=== PATIENT | female | born 1960 | race Caucasian/White ===

== ENCOUNTER 2019-09-10 11:30 | Emergency (ER) | payer BC, SELFPAY ==
--- NOTE | 2019-09-10 11:35 | ED.URI ---
HPI - URI/Sore Throat General Chief Complaint: Upper Respiratory Infection Stated Complaint: cough/goodman Time Seen by Provider: 09/10/19 11:45 Source: patient and RN notes reviewed Mode of arrival: ambulatory Limitations: no limitations History of Present Illness HPI Narrative: 59-year-old female presents with concern for cough, nasal congestion, body aches, headaches that started Monday afternoon. Reports low-grade fever. Reports she got a flu shot this year. MD elicited complaint: cough Related Data Home Medications Medication Instructions Recorded Confirmed atorvastatin 20 mg DAILY 09/10/19 09/10/19 bupropion HCl 300 mg PO DAILY 09/10/19 09/10/19 levothyroxine [Synthroid] 75 mcg DAILY 09/10/19 09/10/19 Allergies Allergy/AdvReac Type Severity Reaction Status Date / Time No Known Allergies Allergy Unknown Verified 09/10/19 11:33 Review of Systems Review of Systems: Narrative: CONSTITUTIONAL: Reports malaise, chills, sweats, or fever. EYES: Denies visual changes, redness, or discharge. ENT: Reports rhinorrhea, congestion. Denies sinus pain, otalgia and sore throat. CARDIOVASCULAR: Denies chest pain, palpitations, or edema. RESPIRATORY: Reports cough. Denies dyspnea. GASTROINTESTINAL: Denies abdominal pain, nausea, vomiting, diarrhea SKIN: Denies rash or itching. MUSCULOSKELETAL: Denies myalgia. NEUROLOGIC: Reports headache. All systems reviewed & are unremarkable except as noted in HPI and below PMFSH Social History Social History Gender identity (if verbalized by the patient): Female Comments At time of signature, agree with nursing past medical, surgical, social and family history. There is no relevant family history pertinent to the presenting complaint Exam Narrative: Exam Narrative: GENERAL: Well-appearing, well-nourished, and in no acute distress. HEAD: Normocephalic EYES: PERRLA, conjunctivae clear ENT: Nares clear, turbinates edematous and erythematous, clear discharge. Mucous membranes moist. TM pearly frost with dull light reflex bilaterally; no tragal tenderness. Oropharynx not erythematous without lesions. Tonsils not enlarged and without exudate, no drooling, no hoarseness, no trismus. NECK: Supple. No lymphadenopathy CHEST: Clear to auscultation, breath sounds equal. No wheezing, rhonchi, rales, or stridor. No respiratory distress, speaks in full sentences. HEART: Regular rate and rhythm. No murmur heard. Normal peripheral pulses. SKIN: Warm, dry, no rash. NEURO: Alert and oriented x3. PSYCH: Normal mood and affect Course Course Emergency Course: Patient is aware of diagnosis, understands and agrees to treatment plan. Anticipatory guidance given. Patient agrees to follow-up as directed and is aware of reasons to seek care at the emergency department. Portions of this record may have been created with voice recognition software Vital Signs Vital signs: Vital Signs Temperature 100.9 F H 09/10/19 11:45 Pulse Rate 105 H 09/10/19 11:45 Respiratory Rate 22 H 09/10/19 11:45 Blood Pressure 151/97 H 09/10/19 11:45 Pulse Oximetry 99 09/10/19 11:45 Temperature 100.9 F H 09/10/19 11:45 Pulse Rate 105 H 09/10/19 11:45 Respiratory Rate 22 H 09/10/19 11:45 Blood Pressure 151/97 H 09/10/19 11:45 Pulse Oximetry 99 09/10/19 11:45 Reviewed. Patient has current diagnosis of hypertension MDM - URI/Sore Throat MDM Narrative Medical decision making narrative: Differential diagnosis considered: Strep pharyngitis, allergic rhinitis, upper respiratory tract infection, sinusitis, rhinosinusitis, nasopharyngitis. viral pharyngitis, otitis media, otitis externa, pneumonia, bronchitis, viral cough syndrome, viral syndrome, and influenza. Exam findings show no acute concerns or changes; patient is non-toxic appearing and is in no distress. Patient is appropriate for outpatient treatment and follow-up. Lab Data Attestation: I reviewed the patient's lab results. Labs: Influenza A Screen
[2019-09-10 11:45] VITALS: BP 151/97; PULSE 105; RESP 22; TEMP 38.3; O2SAT 99
== END 2019-09-10 12:03 | disposition home or self-care (01) ==
PROVIDERS: Emergency Provider Nurse Practitioner
DX: J10.1 Influenza due to other identified influenza virus with other respiratory manifestations (principal); I25.10 Atherosclerotic heart disease of native coronary artery without angina pectoris; E78.00 Pure hypercholesterolemia, unspecified; M19.90 Unspecified osteoarthritis, unspecified site; E03.9 Hypothyroidism, unspecified; F41.9 Anxiety disorder, unspecified; F32.9 Major depressive disorder, single episode, unspecified
CPT/HCPCS: 87804; 99213; G0463

== ENCOUNTER 2020-05-11 15:27 | Emergency (ER) | payer BC, SELFPAY ==
[2020-05-11 15:44] VITALS: BP 121/72; PULSE 90; RESP 20; TEMP 36.3; O2SAT 98
--- NOTE | 2020-05-11 15:55 | ED.EAR ---
HPI - Ear Problem General Chief complaint: Ear Stated complaint: R/ear pain Time Seen by Provider: 05/11/20 15:44 Source: patient and RN notes reviewed Mode of arrival: ambulatory Limitations: no limitations History of Present Illness HPI Narrative: Patient presents today complaining of right ear clogged sensation with sporadic sharp pains. Symptoms have been worsening over the past week. Denies decreased hearing or drainage. Denies congestion, rhinorrhea, sore throat. States she does have allergies to cats and dogs, of which she has both. She has not been taking her Zyrtec or using her Flonase recently. She has been using Debrox and using Q-tips without relief. She is currently pain-free. MD Complaint: other (Clogged sensation in the right ear) Related Data Home Medications Medication Instructions Recorded Confirmed atorvastatin 20 mg DAILY 09/10/19 09/10/19 bupropion HCl 300 mg PO DAILY 09/10/19 09/10/19 levothyroxine [Synthroid] 75 mcg DAILY 09/10/19 09/10/19 Allergies Allergy/AdvReac Type Severity Reaction Status Date / Time No Known Allergies Allergy Unknown Verified 09/10/19 11:33 Review of Systems Review of Systems: Narrative: CONSTITUTIONAL: Denies body aches, fever, chills, or sweats. EYES: Denies visual changes, redness, or discharge. ENT: Denies rhinorrhea, congestion, sore throat, or otalgia. Right ear clogged sensation CARDIOVASCULAR: Denies chest pain, palpitations, or edema. RESPIRATORY: Denies cough or dyspnea. GASTROINTESTINAL: Denies abdominal pain, nausea, vomiting, or diarrhea. GENITOURINARY: Denies dysuria or hematuria. SKIN: Denies rash, itching, or wounds. MUSCULOSKELETAL: Denies back pain, joint pain, or myalgia. NEUROLOGIC: Denies headache, numbness, tingling, or weakness. PSYCH: Denies depression or anxiety. [facility] Past Medical History Medical History (Updated 05/11/20 @ 16:01 by Taty Morel, COMMERCIAL CREDIT SPECIALIST, ) Allergic to dogs Cat allergies Hyperlipidemia Hypertension Hypothyroidism Social History Social History Gender identity (if verbalized by the patient): Female Comments At time of signature, I have reviewed and agree with nursing past medical, surgical, social and family history unless otherwise noted. Please see nursing chart for further information. There is no relevant family history pertinent to the presenting complaint Exam Narrative: Exam Narrative: GENERAL: Well-appearing, well-nourished, and in no acute distress. HEAD: Normocephalic, atraumatic. EYES: EOMI. No redness or drainage. Conjunctivae normal. ENT: Mucous membranes pink and moist. Nares clear. No rhinorrhea. Right ear with mild middle ear effusion without evidence of infection. Left ear normal. Throat normal. Uvula midline. NECK: Normal AROM. Supple. No lymphadenopathy. CHEST: No respiratory distress. Clear to auscultation. HEART: Regular rate and rhythm. No murmur appreciated. Normal peripheral pulses. EXTREMITIES: Normal range of motion. No edema. SKIN: Warm, dry, no rash. Capillary refill normal. Normal skin turgor. NEURO: No focal deficits. Alert and oriented x3. Gait steady. PSYCH: Normal affect. No signs of depression or anxiety. Course Vital Signs Vital signs: Vital Signs Temperature 97.4 F L 05/11/20 15:44 Pulse Rate 90 05/11/20 15:44 Respiratory Rate 20 05/11/20 15:44 Blood Pressure 121/72 05/11/20 15:44 Pulse Oximetry 98 05/11/20 15:44 Temperature 97.4 F L 05/11/20 15:44 Pulse Rate 90 05/11/20 15:44 Respiratory Rate 20 05/11/20 15:44 Blood Pressure 121/72 05/11/20 15:44 Pulse Oximetry 98 05/11/20 15:44 Reviewed. Pt has been instructed to follow up with her PCP regarding her elevated blood pressure today. Medical Decision Making Differential Diagnosis Differential Diagnosis: Otitis media, otitis externa, ruptured TM, serous otitis, eustachian tube dysfunction, cerumen impaction Vital Signs Vital Signs: Vital Signs Temperature 97.4
== END 2020-05-11 16:16 | disposition home or self-care (01) ==
PROVIDERS: Emergency Provider Nurse Practitioner
DX: H65.91 Unspecified nonsuppurative otitis media, right ear (principal); E78.5 Hyperlipidemia, unspecified; I10 Essential (primary) hypertension; E03.9 Hypothyroidism, unspecified
CPT/HCPCS: 99211; G0463

== ENCOUNTER 2023-08-09 18:21 | Emergency (ER) | payer OTHER, SELFPAY ==
[2023-08-09 18:46] VITALS: BP 157/73; PULSE 63; RESP 18; TEMP 36.4; O2SAT 99
--- NOTE | 2023-08-09 19:06 | ED.SKABFB ---
HPI - Skin/Abscess/Foreign Bdy General Chief complaint: Skin/Abscess/Foreign Body Stated complaint: Splinter in Toe Time Seen by Provider: 08/09/23 18:54 Source: patient and RN notes reviewed Mode of arrival: ambulatory Limitations: no limitations History of Present Illness HPI narrative: Patient presents today with wooden splinters to her left 3rd and 4th toes that were sustained at home on an unfinished wooden floor 2 days ago. She is up-to-date on her tetanus vaccine. She has not attempted removal at home. Related Data Home Medications Medication Instructions Recorded Confirmed carvedilol 3.125 mg tablet 3.125 mg PO DAILY 08/09/23 08/09/23 escitalopram oxalate 20 mg tablet 20 mg PO DAILY 08/09/23 08/09/23 levothyroxine 100 mcg tablet 100 mcg PO DAILY 08/09/23 08/09/23 (Synthroid) telmisartan 40 mg tablet 40 mg PO DAILY 08/09/23 08/09/23 Allergies Allergy/AdvReac Type Severity Reaction Status Date / Time No Known Allergies Allergy Unknown Verified 08/09/23 18:48 Review of Systems Review of Systems: CONSTITUTIONAL: Denies body aches, fever, chills, or sweats. EYES: Denies visual changes, redness, or discharge. ENT: Denies rhinorrhea, congestion, sore throat, or otalgia. CARDIOVASCULAR: Denies chest pain, palpitations, or edema. RESPIRATORY: Denies cough or dyspnea. GASTROINTESTINAL: Denies abdominal pain, nausea, vomiting, or diarrhea. GENITOURINARY: Denies dysuria or hematuria. SKIN: Splinters to toes MUSCULOSKELETAL: Denies back pain, joint pain, or myalgia. NEUROLOGIC: Denies headache, numbness, tingling, or weakness. PSYCH: Denies depression or anxiety. [facility] Past Medical History Medical History Allergic to dogs Cat allergies Hyperlipidemia Hypertension Hypothyroidism Social History Social History Gender identity (if verbalized by the patient): Female Comments At time of signature, I have reviewed and agree with nursing past medical, surgical, social and family history unless otherwise noted. Please see nursing chart for further information. There is no relevant family history pertinent to the presenting complaint Exam Narrative: GENERAL: Well-appearing, well-nourished, and in no acute distress. HEAD: Normocephalic, atraumatic. EYES: EOMI. No redness or drainage. Conjunctivae normal. ENT: Mucous membranes pink and moist. NECK: Normal AROM. CHEST: No respiratory distress. EXTREMITIES: Normal range of motion. No edema. SKIN: Warm, dry, no rash. One small wooden splinter to the tip of the left 3rd toe, similar to the left 4th toe. No surrounding erythema or edema to suggest infection. NEURO: No focal deficits. Alert and oriented x3. Gait steady. PSYCH: Normal affect. No signs of depression or anxiety. Course Course Level of Care: Express Care Visit Vital Signs Vital signs: Vital Signs Temperature 97.5 F L 08/09/23 18:46 Pulse Rate 63 08/09/23 18:46 Respiratory Rate 18 08/09/23 18:46 Blood Pressure 157/73 H 08/09/23 18:46 Pulse Oximetry 99 08/09/23 18:46 Oxygen Delivery Room Air 08/09/23 18:46 Temperature 97.5 F L 08/09/23 18:46 Pulse Rate 63 08/09/23 18:46 Respiratory Rate 18 08/09/23 18:46 Blood Pressure 157/73 H 08/09/23 18:46 Pulse Oximetry 99 08/09/23 18:46 Oxygen Delivery Room Air 08/09/23 18:46 Reviewed Procedures Foreign Body Removal Foreign Body #1: Foreign Body Removal Date: 08/09/23 Foreign Body Removal Time: 19:09 Site: left and other (3rd and 4th toes) Description of foreign body: other (Wooden splinter) Sedation/Analgesia: none Technique: removal with forceps and other (Tip of 18 gauge needle) Confirmed by:: direct visualization Complications: none Post-procedure exam: awake, alert Neurovascular: no change from pre-procedu
== END 2023-08-09 19:12 | disposition home or self-care (01) ==
PROVIDERS: Emergency Provider Nurse Practitioner
DX: S90.455A Superficial foreign body, left lesser toe(s), initial encounter (principal); W45.8XXA Other foreign body or object entering through skin, initial encounter; E78.5 Hyperlipidemia, unspecified; I10 Essential (primary) hypertension; E03.9 Hypothyroidism, unspecified
CPT/HCPCS: 99212; G0463

== ENCOUNTER 2024-02-09 14:38 | Emergency (ER) | payer OTHER, SELFPAY ==
[2024-02-09] VITALS (7 sets, daily range): BP systolic 112–132; BP diastolic 56–82; PULSE 60–98; RESP 12; TEMP 36.7; O2SAT 97–100
--- NOTE | ~2024-02-09 | CT_ITS ---
EXAMINATION: CT brain wo con DATE: 02/09/2024 15:38 INDICATION: Transient lip and tongue numbness TECHNIQUE: Computed tomography (CT) of the head was performed without intravenous contrast. Sagittal and coronal reconstructions were performed. The mA was adjusted according to patient size. Iterative reconstruction technique was employed. The dose-length product was 605.33 mGy-cm. COMPARISON: Brain MR dated 10/14/2013 FINDINGS: Small old lacunar infarcts at the head of the left caudate nucleus, in the anterior right thalamus an d at the posterior limb of the left internal capsule. No acute intracranial hemorrhage, acute infarct ion or abnormal extra axial fluid collection. There is mild scattered white matter hypoattenuation co nsistent with chronic small vessel ischemic disease. Ventricles are normal and symmetric. No mass/ma ss effect. The orbits, paranasal sinuses and mastoid air cells are normal. IMPRESSION: 1. Small old lacunar infarcts at the left caudate nucleus, right thalamus and posterior limb of the l eft internal capsule. No acute intracranial process. Reviewed, dictated and finalized at location A. IMPRESSION: 1. Small old lacunar infarcts at the left caudate nucleus, right thalamus and p osterior limb of the left internal capsule. No acute intracranial process.
--- NOTE | 2024-02-09 14:50 | ECG_ITS ---
Test Date: 2024-02-09 14:56:19 Measurements Intervals Gillespie Rate: 63 P: 16 MA: 144 QRS: 28 QRSD: 98 T: 63 QT: 416 QTc: 428 Interpretive Statements SINUS RHYTHM NONSPECIFIC T-WAVE ABNORMALITY- ANTEROLATERAL LEADS BASELINE ARTIFACT- II, III, AVF BORDERLINE ECG No previous ECG available for comparison Electronically Signed On 02-09-2024 15:02:06 CDT by Juancho Neville D.O.
--- NOTE | 2024-02-09 14:51 | ED.NAVMDI ---
HPI - Nausea/Vomiting/Diarrhea General Chief complaint: Nausea/Vomiting/Diarrhea Stated complaint: nausea/vomiting/headache/dizzy Source: patient and EMS Mode of arrival: EMS Limitations: no limitations History of Present Illness HPI Narrative: 63-year-old female presents with several complaints. Patient donated blood this morning around 11am and was feeling fine at that time. Shortly after donating she did start to feel of dizzy and they elevated her legs. She also noted that her tongue and lips were numb. She [facility] and [facility] who recommended she call 911. She deferred and started to go home. While driving, she felt nauseated and had double vision so she pulled over started vomiting. She was had a headache. She states her symptoms, in particular nausea is worse with movement. She denies any abdominal pain or diaphoresis. Her last bowel movement was shortly after donating blood and was loose. She states she had at baseline she has a frequent history of diarrhea. No abdominal pain associated. History of a CVA in 2019 which left her with some reported right hand weakness. She states her pre-donation Hgb was 14.0. Related Data Home Medications Medication Instructions Recorded Confirmed carvedilol 3.125 mg tablet 3.125 mg PO DAILY 08/09/23 08/09/23 escitalopram oxalate 20 mg tablet 20 mg PO DAILY 08/09/23 08/09/23 levothyroxine 100 mcg tablet 100 mcg PO DAILY 08/09/23 08/09/23 (Synthroid) telmisartan 40 mg tablet 40 mg PO DAILY 08/09/23 08/09/23 Allergies Allergy/AdvReac Type Severity Reaction Status Date / Time codeine AdvReac Mild Hives Verified 08/09/23 19:34 [facility] Past Medical History Medical History (Updated 02/09/24 @ 17:32 by Tanesha Ventura MD) Allergic to dogs Cat allergies CKD (chronic kidney disease) CVA (cerebral vascular accident) 2019; residual R hand weakness Hyperlipidemia Hypertension Hypothyroidism Social History Social History Gender identity (if verbalized by the patient): Female Exam Narrative: GENERAL: well-nourished, and in no acute distress. Pale HEAD: Normocephalic, atraumatic. EYES: Non injected, non icteric ENT: Nares clear, no rhinorrhea or epistaxis. NECK: Supple. CHEST: Speaking in full sentences. No respiratory distress. HEART: Regular rate and rhythm. . ABDOMEN: Soft, nondistended. EXTREMITIES: Normal range of motion. No edema. SKIN: Warm, dry, no rash. NEURO: No focal deficits. Alert and oriented x3. Speaks clearly without aphasia or dysarthria. No abnormal movements appreciated. PSYCH: Normal mood and affect. Course Vital Signs Vital signs: Vital Signs Temperature 98.1 F 02/09/24 14:44 Pulse Rate 69 02/09/24 14:44 Respiratory Rate 12 02/09/24 14:44 Blood Pressure 132/75 02/09/24 14:44 Pulse Oximetry 97 02/09/24 14:44 Oxygen Delivery Room Air 02/09/24 14:44 Temperature 98.1 F 02/09/24 14:44 Pulse Rate 74 02/09/24 17:03 Respiratory Rate 12 02/09/24 16:11 Blood Pressure 115/82 02/09/24 17:03 Pulse Oximetry 100 02/09/24 16:11 Oxygen Delivery Room Air 02/09/24 14:44 MDM - Nausea/Vomiting/Diarrhea MDM Narrative Medical decision making narrative: Patient reports feeling nauseated and having double vision and vomiting as well as a headache shortly after donating blood this morning. She also transiently had tongue and lip numbness though the symptoms have improved. Her pre donation hemoglobin was reported to be 14.0. EMS report normal vital signs as well as a normal blood glucose. In the emergency department they are afebrile with vital signs within normal limits. This appears to be near syncope, I suspect as a response to blood donation. Hgb 12.5 , not anemic. Cr 1.6 without prior for comparison. 2nd bolus fluids ordered. Repeat creatinine 1.4. Patient does state she has baseline kidney
[2024-02-09] MEDS: SODIUM CHLORIDE 0.9% IV 1,000 ML 999 ML IV CONT ×2 (15:08→16:11)
[2024-02-09] MEDS: ONDANSETRON INJ 4 MG/2 ML VIAL IV PUSH (15:08)
[2024-02-09 15:15] LABS: Basophils Absolute Auto 0.1 K/mm3 (0.0-0.1); Basophils Percent Auto 0.7 % (0.2-1.2); Eosinophils Absolute Auto 0.1 K/mm3 (0-0.3); Eosinophils Percent Auto 0.6 % (0-4.4); Hematocrit 36.5 % (37.0-47.0); Hemoglobin 12.5 g/dL (12.0-15.0); Immature Granulocyte Absolute 0.05 K/mm3 (0.00-0.031); Immature Granulocyte Percent A 0.5 % (0-0.5); Lymphocytes Absolute Auto 0.86 K/mm3 (0.9-3.2); Mean Corpuscular HGB Conc 34.2 g/dl (32-36); Mean Corpuscular Hemoglobin 30.5 pg (26-34); Mean Platelet Volume 10.3 fl (7.4-10.4); Monocytes Absolute Auto 0.5 K/mm3 (0.1-0.6); Monocytes Percent Auto 5.5 % (2.6-8.5); Neutrophils Percent Auto 83.7 % (45.5-73.1); Platelet Count Result 156 k/mm3 (150-375); White Blood Count 9.5 K/mm3 (4.5-10.0)
[2024-02-09 15:35] LABS: Troponin I < 0.012 ng/mL (0.000-0.034)
[2024-02-09 15:43] LABS: Alanine Aminotransferase 17 U/L (6-35); Albumin Level 4.1 g/dL (3.5-5.1); Alkaline Phosphatase 37 U/L (38-126); Anion Gap 13 mmol/L (4-12); Aspartate Amino Transferase 23 U/L (14-36); Bilirubin,Total 0.6 mg/dL (0.2-1.3); Blood Urea Nitrogen 19 mg/dL (7-17); Calcium 9.2 mg/dL (8.4-10.2); Carbon Dioxide 22 mmol/L (22-30); Chloride 101 mmol/L (98-107); Estimated CRCL calculation 31 ml/min; Estimated Glomerular Filt Rate 33; Glucose 120 mg/dL (65-110); Magnesium 1.7 mg/dL (1.6-2.3); Potassium 4.4 mmol/L (3.4-5.0); Sodium 136 mmol/L (137-145)
[2024-02-09 15:50] LABS: Influenza A QL RT-PCR Negative (Negative); Influenza B QL RT-PCR Negative (Negative); RSV RNA, RT-PCR Negative (Negative); SARS-CoV-2 RNA PCR Negative (Negative)
[2024-02-09 17:22] LABS: Anion Gap 7 mmol/L (4-12); Blood Urea Nitrogen 17 mg/dL (7-17); Calcium 7.9 mg/dL (8.4-10.2); Carbon Dioxide 25 mmol/L (22-30); Chloride 104 mmol/L (98-107); Estimated CRCL calculation 35 ml/min; Estimated Glomerular Filt Rate 38; Glucose 107 mg/dL (65-110); Potassium 4.3 mmol/L (3.4-5.0); Sodium 136 mmol/L (137-145)
== END 2024-02-09 17:53 | disposition home or self-care (01) ==
PROVIDERS: Emergency Provider Student in an Organized Health Care Education/Training Program
DX: R11.2 Nausea with vomiting, unspecified (principal); I12.9 Hypertensive chronic kidney disease with stage 1 through stage 4 chronic kidney disease, or unspecified chronic kidney disease; N18.9 Chronic kidney disease, unspecified; E03.9 Hypothyroidism, unspecified; E78.5 Hyperlipidemia, unspecified; Z86.73 Personal history of transient ischemic attack (TIA), and cerebral infarction without residual deficits; Z20.822 Contact with and (suspected) exposure to COVID-19
CPT/HCPCS: 36415; 70450; 80048; 80053; 83735; 84484; 85025; 87637; 93005; 96361; 96374; 99284; J2405; J7030

== ENCOUNTER 2024-03-31 17:23 | Emergency (ER) | payer OTHER, SELFPAY ==
--- NOTE | 2024-03-31 17:31 | ED.URI ---
HPI - URI/Sore Throat General Chief Complaint: Upper Respiratory Infection Stated Complaint: strep throat symptoms and coughing Time Seen by Provider: 03/31/24 17:31 Source: patient Mode of arrival: ambulatory Limitations: no limitations History of Present Illness HPI Narrative: Alem is a 63-year-old female patient presenting to the clinic today with complaints of sore throat, nasal congestion, nausea, sneezing, coughing, headache, and chest congestion times 4 days. She reports no known fever, body aches, or chills. 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 MD elicited complaint: cough, sore throat, rhinorrhea and nasal congestion Related Data Home Medications Medication Instructions Recorded Confirmed carvedilol 3.125 mg tablet 3.125 mg PO DAILY 08/09/23 03/31/24 escitalopram oxalate 20 mg tablet 20 mg PO DAILY 08/09/23 03/31/24 levothyroxine 100 mcg tablet 100 mcg PO DAILY 08/09/23 03/31/24 (Synthroid) telmisartan 40 mg tablet 40 mg PO DAILY 08/09/23 03/31/24 Allergies Allergy/AdvReac Type Severity Reaction Status Date / Time codeine AdvReac Mild Hives Verified 03/31/24 17:40 Review of Systems Review of Systems: Pertinent positives per HPI. Patient denies any fever, chills, rash, visual changes, dizziness,shortness of breath, chest pain, palpitations, vomiting, diarrhea, constipation, abdominal pain, or any urinary issues. PMFSH Past Medical History Medical History Allergic to dogs Cat allergies CKD (chronic kidney disease) CVA (cerebral vascular accident) 2019; residual R hand weakness Hyperlipidemia Hypertension Hypothyroidism Social History Social History Gender identity (if verbalized by the patient): Female Comments At the time of my signature, I reviewed and agree with the nursing past medical, surgical, social, and family history. There is no relevant family history pertinent to the patient complaint. Exam Narrative: General: Well-developed, well nourished, in no apparent distress Head: Normocephalic, atraumatic Eyes: Pupils equally round and reactive to light bilaterally, EOM intact, sclera and conjunctive clear, no discharge, lids normal Ears: TMs intact and congested, ear canals clear, no drainage, grossly hearing normal. Nose: Nares patent, clear nasal discharge, no inflammation, no sinus tenderness. Mouth: Oral pharynx without lesions or masses, good dentition, MMM. Neck: Supple, trachea midline, no enlargement of anterior or posterior cervical nodes, no thyroid masses or goiter palpable. Cardio: Regular rate and rhythm, s1 and s2 normal, no murmur appreciated. Resp: Clear to auscultation bilaterally, no rhonchi, rales, wheezing or rubs Course Course Emergency Course: Portions of this record may have been created with voice recognition software. Level of Care: Express Care Visit Vital Signs Vital signs: Vital signs reviewed MDM - URI/Sore Throat MDM Narrative Medical decision making narrative: At the time of visit patient is resting comfortably on the exam table. Patient appears to be nontoxic. Labs: COVID and strep test was performed. COVID testing is positive. Strep test was negative. We will send strep culture pain Plan: I suspect patient has COVID-19. Work note was given. Supportive measures were discussed with the patient and they voiced understanding discharge instructions and agrees to treatment plan. Return precautions reviewed Differential Diagnosis Differential diagnosis: Likely upper respiratory infection, otitis media, sinusitis, viral infection, bronchitis, influenza, pharyngitis and other Discharge Plan Discharge Clinical Impression: COVID-19 Patient Disposition: Home, Self-Care Condition: Stable Instructions: Antibiotic Form, How to Recover from COVID-19 at Home (ED) Additional Instructions: COVID testing was p
[2024-03-31 17:40] VITALS: BP 138/83; PULSE 87; RESP 20; TEMP 36.4; O2SAT 99
[2024-03-31 18:00] LABS: EDSTREPNEGPOS1 Negative (Negative)
== END 2024-03-31 18:03 | disposition home or self-care (01) ==
PROVIDERS: Emergency Provider Nurse Practitioner Family
DX: U07.1 COVID-19 (principal); I12.9 Hypertensive chronic kidney disease with stage 1 through stage 4 chronic kidney disease, or unspecified chronic kidney disease; N18.9 Chronic kidney disease, unspecified; E78.5 Hyperlipidemia, unspecified; E03.9 Hypothyroidism, unspecified; I69.351 Hemiplegia and hemiparesis following cerebral infarction affecting right dominant side
CPT/HCPCS: 87081; 87426; 87880; 99213; G0463

== ENCOUNTER 2024-05-22 17:11 | Emergency (ER) | payer OTHER, SELFPAY ==
[2024-05-22 17:23] VITALS: BP 123/68; PULSE 81; RESP 18; TEMP 36.2; O2SAT 99
--- NOTE | 2024-05-22 17:35 | ED.URI ---
HPI - URI/Sore Throat General Chief Complaint: Upper Respiratory Infection Stated Complaint: cold symptoms Time Seen by Provider: 05/22/24 17:35 History of Present Illness HPI Narrative: 63-year-old female presented for complaint of nasal congestion and drainage, headache, fatigue and cough. Onset 4 days. Denies shortness of breath, wheezing, nausea vomiting, fevers or chills. Taking Sudafed, benadryl and ibuprofen. Related Data Home Medications Medication Instructions Recorded Confirmed carvedilol 3.125 mg tablet 3.125 mg PO DAILY 08/09/23 05/22/24 escitalopram oxalate 20 mg tablet 20 mg PO DAILY 08/09/23 05/22/24 levothyroxine 100 mcg tablet 100 mcg PO DAILY 08/09/23 05/22/24 (Synthroid) telmisartan 40 mg tablet 40 mg PO DAILY 08/09/23 05/22/24 Allergies Allergy/AdvReac Type Severity Reaction Status Date / Time codeine Allergy Mild Hives Verified 05/22/24 17:31 adhesive tape Allergy Rash Verified 05/22/24 17:31 Review of Systems Review of Systems: CONSTITUTIONAL: Denies body aches, fever, chills, or sweats. EYES: Denies visual changes, redness, or discharge. ENT: reports rhinorrhea, congestion, otalgia. CARDIOVASCULAR: Denies chest pain, palpitations, or edema. RESPIRATORY: reports Denies dyspnea. GASTROINTESTINAL: Denies abdominal pain, nausea, vomiting, or diarrhea. SKIN: Denies rash MUSCULOSKELETAL: Denies back pain, joint pain, or myalgia. NEUROLOGIC: Denies headache PMFSH Past Medical History Medical History Allergic to dogs Cat allergies CKD (chronic kidney disease) CVA (cerebral vascular accident) 2019; residual R hand weakness Hyperlipidemia Hypertension Hypothyroidism Social History Social History Gender identity (if verbalized by the patient): Female Exam Narrative: GENERAL: mildly Ill-appearing, no acute distress. EYES: conjunctivae clear ENT: Mucous membranes moist. Nasal congestion noted. TMs pearly frost with normal light reflex bilaterally; no tragal tenderness. Oropharynx not erythematous without lesions. No drooling, no hoarseness, no trismus, uvula midline. No tripod positioning, hot potato voice, or soft palate swelling. NECK: Supple. No lymphadenopathy CHEST: Clear to auscultation, breath sounds equal. No respiratory distress, speaks in full sentences. HEART: Regular rate and rhythm. No murmur heard. SKIN: Warm, dry, no rash. NEURO: Alert and oriented x3. Course Course Emergency Course: Patient is aware of diagnosis, understands and agrees to treatment plan. Anticipatory guidance given. Patient agrees to follow-up as directed and is aware of reasons to seek care at the emergency department. Portions of this record may have been created with voice recognition software Level of Care: Express Care Visit Vital Signs Vital signs: Vital Signs Temperature 97.2 F L 05/22/24 17:23 Pulse Rate 81 05/22/24 17:23 Respiratory Rate 18 05/22/24 17:23 Blood Pressure 123/68 05/22/24 17:23 Pulse Oximetry 99 05/22/24 17:23 Oxygen Delivery Room Air 05/22/24 17:23 Temperature 97.2 F L 05/22/24 17:23 Pulse Rate 81 05/22/24 17:23 Respiratory Rate 18 05/22/24 17:23 Blood Pressure 123/68 05/22/24 17:23 Pulse Oximetry 99 05/22/24 17:23 Oxygen Delivery Room Air 05/22/24 17:23 MDM - URI/Sore Throat MDM Narrative Medical decision making narrative: Neg Flu COVID result reviewed with pt. Advise supportive treatments. Patient is appropriate for outpatient treatment and follow-up. Differential Diagnosis Differential diagnosis: Likely upper respiratory infection, viral infection and pharyngitis Lab Data Labs: Lab Results 05/22/24 Range/Units 18:02 POC Influenza A Ag Negative (Negative) POC Influenza B Ag Negative (Negative) POC SARS CoV-2 Ag Negative (Negative) Discharge Plan Discharge Clinical Impression: Upper respiratory infection Patient Disposition: Home, Self-Care Condition: Stable Instructions: Antibiotic Form, Upper Respiratory Infection (ED) Additional Instructions: Negative flu and COVID. if symptoms are due to a viral illness, it is not treated with antibiotics. Viral symptoms can be present for up to 10-14 days. Recommendations: Flonase spray and Zyrtec for sinus congestion Cough syrup may cause drowsiness; avoid driving or take it at night time. Tylenol every 8 hours as needed for pain/fever Soft foods, cool liquids, warm tea. Gargle with warm saltwater twice a day. Chloraseptic spray and throat lozenges. Rest and stay hydrated. --Follow up with your PCP --Go to the ER for any worsening symptoms or concern Prescriptions: No Action carvedilol 3.125 mg tablet 3.125 mg PO DAILY levothyroxine [Synthroid] 100 mcg tablet 100 mcg PO DAILY telmisartan 40 mg tablet 40 mg PO DAILY escitalopram oxalate 20 mg tablet 20 mg PO DAILY Follow-up/Referrals: UNKNOWN,DOCTOR [Non-Staff] - Stand Alone Forms: Work/School Release IP Time of Disposition: 18:18
[2024-05-22 18:03] LABS: EDCOVIDSCREEN Negative (Negative)
[2024-05-22 18:04] LABS: EDINFLUASCREEN Negative (Negative); EDINFLUBSCREEN Negative (Negative)
== END 2024-05-22 18:24 | disposition home or self-care (01) ==
PROVIDERS: Emergency Provider Nurse Practitioner Family
DX: J06.9 Acute upper respiratory infection, unspecified (principal); Z20.822 Contact with and (suspected) exposure to COVID-19; I12.9 Hypertensive chronic kidney disease with stage 1 through stage 4 chronic kidney disease, or unspecified chronic kidney disease; N18.9 Chronic kidney disease, unspecified; I69.351 Hemiplegia and hemiparesis following cerebral infarction affecting right dominant side; E78.5 Hyperlipidemia, unspecified; E03.9 Hypothyroidism, unspecified
CPT/HCPCS: 87426; 87804; 99212; G0463

== ENCOUNTER 2025-06-03 13:24 | Emergency (ER) | payer OTHER, SELFPAY ==
--- OUTSIDE RECORDS SUMMARY | 2014-01-23 04:01 | XMS_ITS | Continuity of Care Document ---
Author Organization [employer] [facility] Address [address] [place] [address] Phone Care Team Providers Care Geospatial Applications Developer Name Role Phone Ad OD OD, José Luis Unavailable Unavailabl e Medications Medication Instructions Dosage Effective Dates (start - stop) Status Comments Pataday 0.2 % Solution INSTILL ONE DROP INTO BOTH EYES IN THE MORNING 1 drop - Active alprazolam 0.25 mg tablet take 1 tablet by oral route 3 times every day as needed 0.25 MG - Active levothyroxine 112 mcg tablet take 1 tablet by oral route every day 112 MCG - Active Budeprion SR 150 mg tablet,extended release take 1 tablet by oral route 2 times every day - Active atorvastatin 20 mg tablet take 1 tablet by oral route every day 20 MG - Active Restasis 0.05 % eye drops in a dropperette instill 1 drop by ophthalmic route every 12 hours into affected eye(s) 1.00 drop - Active Procedures Procedure Date Contact Lens Check Office/outpatient Visit, Est Fundus Photography W/ Report Tear Osmolarity Microfluidic Analysis Ap Refraction Contact Lens Assessment Cntct Lens Gas Permeable Bifocal 2013 Contact Lens Check Contact Lens, Gas Permeable, Spherical, Per Lens Office/outpatient Visit, Est Refraction Fundus Photography W/ Report Temporary Tear Duct Plug Contact Lens Assessment Close Tear Duct Opening Close Tear Duct Opening Contact Lens Check Contact Lens Check Contact Lens Check Contact Lens, Gas Permeable, Spherical D Contact Lens Assessment Office/outpatient Visit, New Refraction Corneal Topography Advance Directives Directive Yes / No Effective Date File Name No Information Encounters Encounter Description Practice Location Reason(s) For Visit Diagnoses Date Provider Providers Copied on Encounter Formerly [facility], [address] [place] [address] [address], [place], [place], [id number], [place] tel:[phone] [facility] No Information 4 Ad Ordonez. [address] [place], [place], [id number], . tel:[phone] Formerly [facility], [address] [place] [address] [address], [place], [place], [address], [place] tel:[phone] [facility] No Information 4 Clover OD Artemio. [address], [facility], [place]. tel:[phone] Formerly [facility], [address] [place] [address] [address], [place], [place], [id number], [place] tel:[phone] [facility] EYE & VISION EXAMINATION 4 Clover OD Artemio. 200 [facility] [address], [place], [address], [place]. tel:[phone] Referring Provider: José Lusi Vega, [address] [place], [address] . tel:[phone] Office/outpat ient Visit, Est Formerly [facility], [address] [place] [address] [address], [place], [place], [address], [place] tel:[phone] [facility] NONEXUDAT MACULAR DEGENTEAR FILM INSUFFIC NOSHYPERMETROPIA Apr-0 3-201 4 Clover OD Artemio. 200 [facility], [address], [facility], . tel:[phone] Referring Provider: José Luis Duong OD P, [address] [facility], [place], [address] . tel:[phone] [facility], [address] [place] [address] [address], [place], [place], [id number], [place] tel:[phone] [facility] No Information Apr-0 3-201 4 Clover OD Artemio. 200 [facility], [address], [facility], . tel:[phone] Referring Provider: José Luis Duong OD P, [address], [place], [address] [place] [address] . tel:[phone] Formerly [facility], [address] [place] [address] [address], [place], [place], [address], [place] tel:[phone] [facility] No Information Apr-2 3-201 3 Clover OD Artemio. 200 [facility], [address], [facility], . tel:[phone] Referring Provider: José Luis Duong OD P, [address], [place], [address] [place] [address] . tel:[phone] Office/outpat ient Visit, Est Formerly [facility], [address] [place] [address] [address], [place], [place], [address], [place] tel:[phone] [facility] No Information Mar-2 0-201 3 Clover OD Artemio. 200 [facility], [address], [facility], . tel:[phone] Referring Provider: José Luis Duong OD P, [address] [facility], [place], [address] . tel:[phone] [facility], [address], [place], [place], [address], tel:[phone] [facility] No Information 2 Clover OD Artemio. 200 [facility], [address] [place] [address], [facility], . tel:[phone] Referring Provider: José Luis Duong OD P, [address] [facility], [place], [address] . tel:[phone] Formerly [facility], [address] [place] [address] [address], [place], [place], [address], tel:[phone] [facility] No Information 2 Clover OD Artemio. 200 [facility], [address], [facility], . tel:[phone] Referring Provider: José Luis Duong OD P, [address] [facility], [place], [address] . tel:[phone] Formerly [facility], [address], [place], [place], [address], [place] tel:[phone] [facility] No Information 2 Clover OD Artemio. 200 [facility] [address], [place], [facility], . tel:[phone] Referring Provider: José Luis Duong OD P, [address] [facility], [place], [address] . tel:[phone] [facility], [address], [place], [place], [address], [place] tel:[phone] [facility] No Information 1 Clover OD Artemio. 200 [facility], [address], [place], [facility], . tel:[phone] Referring Provider: José Luis Duong OD P, [address] [place], [address] . tel:[phone] Formerly [facility], [address] [place], [place] [address], [place], [address], tel:[phone] [facility] No Information 1 Clover OD Artemio. 200 [facility], [facility] [address], [place], [facility], . tel:[phone] Referring Provider: José Luis Duong OD P, [address] [place], [address] . tel:[phone] Office/outpat ient Visit, [facility], [address] [place], [place] [address] [address], [place], [place], [address], tel:[phone] [facility] No Information 1 Ad Ordonez. [address], [place], [address], . tel:[phone] Referring Provider: José Luis Duong OD P, [address] [place], [address] . tel:[phone] Family History Family Member Type Diagnosis Age At Onset Mother Problem (finding) degenerative disorder o f macula Mother Problem (finding) glaucoma Payers Payer name Insurance type Covered alliance party ID Authoriza tion(s) No Information Social History Type Description Quantity Date Captured Comments Sex Female Smoking Status No Information Chief Complaint And Reason For Visit No Information Reason For Referral Reason For Referral No Information History Of Present Illness Encounter Date Complaint History Of Prese nt Illness No Information Functional Status Date Functional Assessmen t No Information Instructions Date Instruction Additional Infor shane great course with RHEA Chinchilla OU - flattened OU to 8.1 BC - improved jade send 2pk completion in 1wk unless pt calls before that time with [facility] or comfort issues. Educational materials provided:Contact lenses. Related to Exam of eyes and vision - Return in 1 year audrey Galo O.D. for Complete Exam / Contacts. 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 AT's prn. Add LE gel today BID x 2 weeks$79 CL assesspt likes DHD OUflatten to 8.1 OUlenses pd today - owe 2pk completion Related to Hypermetropia - call for disp Related to Hyper metropia Assessments Type Assessment Date No Information Patient Care Teams Name Effective Dates (start - stop) Status Members No Information
--- OUTSIDE RECORDS SUMMARY | 2014-01-23 04:01 | XMS_ITS | Continuity of Care Document ---
Author Organization [employer] [facility] [place] Address [address] [place] [address] Phone Care Team Providers Care Top Steep Tender Name Role Phone Ad OD OD, José [...] Diagnoses Date Provider Providers Copied on Encounter [facility], [address] [place] [address] [address], [place], [place], [address], [place] tel:[phone] [facility] No Information 4 Ad Ordonez. [address] [place], [place], [address], . tel:[phone] [facility], [address] [place] [address] [address], [place], [place], [address], [place] tel:[phone] [facility] No Information 4 Clover OD Artemio. [address], [facility], [place]. tel:[phone] [facility], [address] [place] [address] [address], [place], [place], [address], [place] tel:[phone] [facility] EYE & VISION EXAMINATION 4 Clover OD Artemio. 200 [facility] [address], [place], [address], [place]. tel:[phone] Referring Provider: José Luis Vega, [address] [place], [address] . tel:[phone] Office/outpat ient Visit, Est [facility], [address] [place] [address] [address], [place], [place], [address], [place] tel:[phone] [facility] NONEXUDAT MACULAR DEGENTEAR FILM INSUFFIC NOSHYPERMETROPIA Apr-0 3-201 4 Clover OD Artemio. 200 [facility], [address], [facility], . tel:[phone] Referring Provider: José Luis Duong OD P, [address] [facility], [place], [address] . tel:[phone] [facility], [address] [place] [address] [address], [place], [place], [address], [place] tel:[phone] [facility] No Information Apr-0 3-201 4 Clover OD Artemio. 200 [facility], [address], [facility], . tel:[phone] Referring Provider: José Luis Duong OD P, [address] [place], [place], [address] [place] [address] . tel:[phone] [facility], [address] [place] [address] [address], [place], [place], [address], [place] tel:[phone] [facility] No Information Apr-2 3-201 3 Clover OD Artemio. 200 [facility], [address], [facility], . tel:[phone] Referring Provider: José Luis Duong OD P, [address] [place], [place], [address] [place] [address] . tel:[phone] Office/outpat ient Visit, Est [facility], [address] [place] [address] [address], [place], [place], [address], [place] tel:[phone] [facility] No Information Mar-2 0-201 3 Clover OD Artemio. 200 [facility], [address], [facility], . tel:[phone] Referring Provider: José Luis Duong OD P, [address] [facility], [place], [address] . tel:[phone] [facility], [address], [place], [place], [address], tel:[phone] [facility] No Information 2 Clover OD Artemio. 200 [facility], [address] [place] [address], [facility], . tel:[phone] Referring Provider: José Luis Duong OD P, [address] [facility], [place], [address] . tel:[phone] [facility], [address] [place] [address] [address], [place], [place], [address], tel:[phone] [facility] No Information 2 Clover OD Artemio. 200 [facility], [address], [facility], . tel:[phone] Referring Provider: José Luis Duong OD P, [address] [facility], [place], [address] . tel:[phone] [facility], [address], [place], [place], [address], [place] tel:[phone] [facility] No Information 2 Clover OD Artemio. 200 [facility] [address], [place], [facility], . tel:[phone] Referring Provider: José Luis Duong OD P, [address] [facility], [place], [address] . tel:[phone] [facility], [address], [place], [place], [address], [place] tel:[phone] [facility] No Information 1 Clover OD Artemio. 200 [facility], [address], [place], [facility], . tel:[phone] Referring Provider: José Luis Duong OD P, [address] [place], [address] . tel:[phone] [facility], [address] [place], [place] [address], [place], [address], tel:[phone] [facility] No Information 1 Clover OD Artemio. 200 [facility], [facility] [address], [place], [facility], . tel:[phone] Referring Provider: José Luis Duong OD P, [address] [place], [address] . tel:[phone] Office/outpat ient Visit, [facility], [address] [place], [place] [address] [address], [place], [place], [address], tel:[phone] [facility] No Information 1 Ad Ordonez. [address] [place], [place], [address], . tel:[phone] Referring Provider: José Luis Duong OD P, [address] [place], [address] . tel:[phone] Family History Family Member Type Diagnosis Age [...] t No Information Instructions Date Instruction Additional Micheller shane - Return in 1 year audrey Galo O.D. for Complete Exam / Contacts. Related to Exam of eyes and vision great course with DH D OU - flattened OU to 8.1 BC - improved fitwill send 2pk completion in 1wk unless pt calls before that time with [facility] or comfort issues. Educational materials provided:Contact lenses. 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 AT's prn. Add LE gel today BID x 2 weeks$79 CL assesspt likes DHD OUflatten to 8.1 OUlenses pd today - owe 2pk completion Related to Hypermetropia Assessments Type Assessment Date No Information Patient Care Teams Name Effective Dates (start - stop) Status Members No Information
--- OUTSIDE RECORDS SUMMARY | 2025-06-02 23:59 | XMS_ITS | Continuity of Care Document ---
Author Organization [facility] Address [address], [place] [id number] Care Team Providers Care Solution Developer Name Role Phone Anette Koroma Primary Care Physician Encounter [facility] Financial Number [id number] Date(s): 06/02/25 - 06/02/[address] [phone] Discharge Disposition: Home or Self Care Attending Physician: Jessenia Tomlinson MD Admitting Physician: Jessenia Tomlinson MD Referring Physician: Jessenia Tomlinson MD Encounter Type: Outpatient-DOC Allergies, Adverse Reactions, Alerts Substance Criticality Severity Reaction Reaction Severity Status codeine Unable to assess criticality Severe Vomiting Active Adhesive tape Unable to assess criticality Moderate Redness Active Assessment and Plan Future Appointments Appointment Date:04/23/2026 01:30:00 PM Scheduled Provider:Jessenia Tomlinson MD Location: Neurology Appointment Type:NN EP Established Patient Immunizations Given and Recorded Vaccine Date Status Refusal Reason influenza virus vaccine, inactivated 05/22/23 Give n influenza virus vaccine, inactivated 05/11/22 Give n influenza virus vaccine, inactivated 05/19/21 Give n influenza virus vaccine, inactivated 05/01/20 Give n influenza virus vaccine, inactivated 04/26/19 Delonte rded influenza virus vaccine, inactivated 05/08/17 Delonte rded influenza virus vaccine, inactivated 04/23/12 Delonte rded zoster vaccine, recombinant 11/09/22 Given zoster vaccine, recombinant 05/11/22 Given pneumococcal 23-valent vaccine 05/19/21 Given SARS-CoV-2 (COVID-19) mRNA BNT-162b2 vax 05/02/21 Recorded SARS-CoV-2 (COVID-19) mRNA BNT-162b2 vax 10/13/20 Recorded SARS-CoV-2 (COVID-19) mRNA BNT-162b2 vax 09/22/20 Recorded tetanus-diphtheria toxoids 01/29/20 Given Tetanus, Diphtheria, acel Pertussis Tdap 07/27/09 Recorded Medications ALPRAZolam 0.5 mg oral tablet 0.5 mg, 1 tablet(s), Oral, tid, PRN, Tablet(s), 0, for anxiety Start Date: 07/26/16 Status: Ordered Repeat number: 1 aspirin 81 mg oral enteric coated tablet 81 mg, 1 tablet(s), Oral, daily, Tab EC, 0 Start Date: 11/10/19 Status: Ordered Repeat number: 1 buPROPion 150 mg/24 hours (XL) oral tablet, extended release 150 mg, 1 tablet(s), Oral, daily, TAKE 1 TABLET ONCE DAILY INTHE MORNING Start Date: 10/04/24 Status: Ordered Repeat number: 1 carvedilol 3.125 mg oral tablet 1 tablet(s), Oral, [id number], 200 tablet(s), 0, Route to Pharmacy Electronically, [facility] #[id number], [id number], 154.5, cm, 02/14/23 15:20:00 CDT, Height, 80, kg, 02/14/23 15:20:00 CDT, Weight Start Date: 04/21/23 Status: Ordered Quantity: 200.0 Unit: Repeat number: 1 escitalopram 20 mg oral tablet 20 mg, 1 tablet(s), Oral, daily, 30 tablet(s), Tablet(s), 2, 2, Route to Pharmacy Electronically, [facility] #[id number], [id number], 155.3, cm, 12/09/24 9:49:00 CDT, Height, 77.8, kg, 12/09/24 9:49:00 CDT, Weight Start Date: 12/09/24 Status: Ordered Quantity: 30.0 Unit: Repeat number: 3 ibuprofen 200 mg oral tablet 400 mg, 2 tablet(s), Oral, [id number], PRN, 120 tablet(s), Tablet(s), 0, for fever Start Date: 10/21/24 Status: Ordered Quantity: 120.0 Unit: Repeat number: 1 measles/mumps/rubella virus vaccine subcutaneous injection 0.5 mL, SubQ, Once, 0.5 mL, REC Injection, 0, 0, Route to Pharmacy Electronically, [facility] #[id number], [id number], 155.3, cm, 12/09/24 9:49:00 CDT, Height, 77.8, kg, 12/09/24 9:49:00 CDT, Weight Start Date: 12/09/24 Status: Ordered Quantity: 0.5 Unit: mL Repeat number: 1 Indications: Encounter for immunization; pseudoephedrine 30 mg oral tablet 30 mg, 1 tablet(s), Oral, [id number], PRN, 80 tablet(s), Tablet(s), 0, congestion Start Date: 02/14/23 Status: Ordered Quantity: 80.0 Unit: Repeat number: 1 Synthroid 100 mcg (0.1 mg) oral tablet 100 mcg, 1 tablet(s), Oral, daily before breakfast, 90 tablet(s), Tablet(s), 1, 1, Dispense as written, Route to Pharmacy Electronically, [facility], [id number], 155.3, cm, 12/09/24 9:49:00 CDT, Height, 77.8, kg, 12/09/24 9:49:00 CDT, Weight Start Date: 02/21/25 Status: Ordered Quantity: 90.0 Unit: Repeat number: 2 ZyrTEC 10 mg oral tablet 10 mg, 1 tablet(s), Oral, daily, PRN, 10 tablet(s), Tablet(s), 0, for allergy symptoms Start Date: 02/14/23 Status: Ordered Quantity: 10.0 Unit: Repeat number: 1 Problem List Condition Confirmation Course Effective Dates Status H ealth Status Informant Bilateral arm weakness Confirmed Active Chronic kidney disease, stage 3 Confirmed Active Cough Confirmed Active DDD (degenerative disc disease), cervical Confirmed Active Diplopia Confirmed Active I10 Essential (primary) hypertension Confirmed Active Fibrocystic disease of breast Confirmed Active Hand pain Confirmed Active H/O arterial ischemic stroke Confirmed Active History of colon polyps Confirmed Active Hyperlipidemia, unspecified Confirmed Active Hypothyroid Confirmed Active Immunoglobulin A deficiency Confirmed Active Elevated CK Confirmed Active Memory change Confirmed Active Migraines Confirmed Active Anxiety and depression Confirmed Active Right arm numbness Confirmed Active Palpitations Confirmed Active Screening for breast cancer Confirmed Active Annual physical exam Confirmed Active Postmenopausal Confirmed Active Prediabetes Confirmed Active Proximal limb weakness Confirmed Active M54.12 Cervical radiculopathy Confirmed Active Rectal polyp Confirmed Active Seasonal allergic rhinitis Confirmed Active Right shoulder pain Confirmed Active Bilateral shoulder pain Confirmed Active Vision changes Confirmed Active Vitamin D deficiency Confirmed Active Procedures Procedure Date Related Diagnosis Body Site Status Colonoscopy 2020 Completed C4-C7 anterior discectomy and fusion 1 2008 Completed abdominalplasty Completed Carpal tunnel release Com pleted Face lift Completed Fusion 2 Completed LASIK Completed Rectal polypectomy Comple chasity 1DrMarjan Arriaga 2cervical and discectomy Results Radiology Reports * Exam Date Time Procedure Performing Provider Status 06/02/25 12:33 PM MRI CERVICAL SPINE W/O CONTRAST Auth (Verified) Notes: (MRI CERVICAL SPINE W/O CONTRAST) Reason For Exam: h/o cervical spinal stenosis, now with RUE weakness MRI CERVICAL SPINE W/O CONTRAST MRI cervical spine without contrast, 2025 HISTORY: Neck pain, right upper extremity weakness] COMPARISON: None MRI: 1.5T FINDINGS: Vertebral marrow signal and alignment are within normal limits with C4-C7 fusion evident, anterior plate, screws seen at this level.. There is no focal cord signal abnormality seen. C2-3: Shallow central protrusion. No canal or foraminal narrowing. C3-4: Extremely minimal shallow protrusion without significant canal or foraminal narrowing. C4-5: This level is fused. No canal or foraminal narrowing. C5-6: There is a residual focal endplate osteophyte effacing the right anterior thecal sac. No overall canal or foraminal narrowing seen at this fused level. C6-7: This level is fused with minimal residual endplate irregularity and left foraminal disc-osteophyte complex causing mild to moderate left but no right foraminal narrowing. No midline canal stenosis. C7-T1: Slight anterolisthesis seen with bilateral facet arthropathy. No significant canal or foraminal narrowing. T1-2: There is a central disc extrusion with cephalad migration flattening the anterior thecal sac and slightly flattening the anterior cord. Bilateral moderate facet arthropathy seen with mild bilateral foraminal narrowing. IMPRESSION: Postoperative changes. Spondylosis as above. Prior C4-C7 fusion. Dictating Provider: Elana Smith MD Releasing Physician: Elana Smith MD Signature Electronically Authorized Authorized Date/Time: 02-JUN-2025 03:00 pm Social History Social History Type Response Alcohol Current some day alc ohol user, 1-2 times per month, 1 drinks/episode average. 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 Exercise Exercise type: none currently. 1 Home/Environment Lives with Alone. Nutrition/Health Type of diet: averag e. Caffeine intake amount: soda, 2/day. Sexual Sexually active: No. Substance Abuse Never drug user Smoking Status Never smoker;Never; Tobacco Cessation Counseling Requested N/A entered on: 05/22/23 Sex Sex Representation Female (finding) 1none currently Note * Event Display: Authorization to Treat * Event Display: Authorization to Treat * Event Display: ROI_Correspondence Authored Date: * Event Display: ROI_Correspondence Authored Date: * Event Display: ROI_Correspondence Patient Care team information Care Team Personnel Name: Jessenia Tomlinson MD Position: Physician - Neurology Member Role: Specialist Physician Address: [address] [phone] Telecom: Name: Anette Koroma M.D. Position: Physician - Internal Medicine Member Role: Primary Care Physician Address: [address] [place] [address] [place] [address] Telecom: Care Team Related Persons Name: CORNELL MOURA Insurance Providers Guarantor name: MARII Aminata LANGLEY [employer] Plan Information #: 1 Payer: [employer] Payer Identifier: NA Member Number: [id number] Group Number: [id number] Subscriber Identifier: [id number] Relationship to Subscriber: self Coverage Type: Managed Care (private) or private health insurance (indemnity), not otherwise specified Coverage Verification Date: 05/23/25 Telecom: Address: [id number] [place] [address] Health Plan Information #: 2 Payer: [employer] Payer Identifier: NA Member Number: [id number] Group Number: [id number] Subscriber Identifier: [id number] Relationship to Subscriber: self Coverage Type: Managed Care (private) or private health insurance (indemnity), not otherwise specified Coverage Verification Date: 05/23/25 Telecom: Address: [phone] [place] [address]
--- NOTE | 2025-06-03 13:25 | ED_ITS ---
HPI - URI/Sore Throat General Chief Complaint: Upper Respiratory Infection Stated Complaint: URI Time Seen by Provider: 06/03/25 13:25 Source: patient Mode of arrival: ambulatory Limitations: no limitations History of Present Illness HPI Narrative: Patient is a 65-year-old female who presents with congestion, productive cough and fatigue for 6 days. In the beginning she had sore throat and fever but that has now resolved. Patient does report symptoms are improving each day. Patient also complaining of splinter in left great toe that happened approximately 2 hours prior to arrival. Patient tried to remove with tweezers but was unsuccessful. Related Data Home Medications ?Medication ?Instructions ?Recorded ?Confirmed ?Last Taken ?Type carvedilol 3.125 mg tablet 3.125 mg PO DAILY 08/09/23 05/22/24 Unknown History escitalopram oxalate 20 mg tablet 20 mg PO DAILY 08/0905/22/24 Unknown History levothyroxine 100 mcg tablet 100 mcg PO DAILY 08/09/23 05/22/24 Unknown History (Synthroid) telmisartan 40 mg tablet 40 mg PO DAILY 08/09/2304/25 Unknown History Allergies Allergy/AdvReac Type Severity Reaction Status Date / Time codeine Allergy Mild Hives Verified 06/03/25 13:38 adhesive tape Allergy Rash Verified 06/03/25 13:38 Review of Systems 2 Review of Systems: All systems reviewed & are unremarkable except as noted in HPI and below Constitutional: Constitutional: Denies chills, Reports fatigue, Denies fever(s), Denies headache(s), Denies malaise and Denies weakness Eyes: Eyes: Denies blurry vision, Denies itchy eyes and Denies loss of vision ENT: Denies otalgia, Denies headache(s), Reports nasal congestion, Denies sinus pain and Denies sore throat Cardiovascular: Cardiovascular: Denies chest pain, Denies irregular heart rhythm and Denies dyspnea Respiratory: Respiratory: Reports cough and Denies dyspnea Gastrointestinal: Gastrointestinal: Denies abdominal pain, Denies diarrhea, Denies nausea and Denies vomiting Musculoskeletal: Musculoskeletal: Denies back pain, Denies myalgias and Denies arthralgias Integumentary/Breasts: Skin/Breast: Denies pruritus, Denies rash and Reports wounds Neurologic: Denies headache(s), Denies loss of vision and Denies weakness Psychiatric: Psychiatric: Reports no additional psychiatric complaints Endocrine: Endocrine: Denies fatigue Allergic/Immunologic: Allergic/Immunologic: Denies itchy eyes PMFSH Past Medical History Medical History CKD (chronic kidney disease) CVA (cerebral vascular accident) 2019; residual R hand weakness Hypothyroidism Hyperlipidemia Hypertension Cat allergies Allergic to dogs Social History Social History Gender identity (if verbalized by the patient): Female Comments At time of signature, agree with nursing past medical, surgical, social and family history. There is no relevant family history pertinent to the presenting complaint. Exam 2 Const: General: cooperative, healthy appearing, comfortable, no acute distress and well nourished Nutritional Appearance: well nourished O rientation/consciousness: patient oriented x3 Limitations: no limitations HENMT: Head: normal to inspection, normocephalic and atraumatic Ears: h earing grossly normal bilaterally, external ears normal, TM's normal bilaterally, EAC's normal and no periauricular adenopathy Face/Nose/Sinus: N ormal external nose present, Abnormal mucous membranes and turbinates present erythematous bilateral and diffuse, normal facial exam, sinuses nontender and face symmetric Face and sinus: normal facial exam, sinuses nontender and face symmetric Mouth: Yes Normal oral and palatal mucosa present, Yes lip normal, Yes tongue normal, Yes Normal salivary glands and ducts present, Yes oropharynx normal and Yes moist mucous membranes Teeth and gingiva: dentition normal Throat: posterior oropharynx normal, tonsils normal and uvula midline Eyes: General: appearance normal, both eyes and all related structures A lignment and Position: alignment normal and position normal Periorbital: p eriorbital findings normal Eyelids: eyelids normal Pupils: Equal, round and reactive pupils present Neck: Neck: normal visual inspection, full ROM, no lymphadenopathy and supple Chest: Chest palpation & inspection: normal inspection of the chest and normal palpation of entire chest wall Resp: Effort & Inspection: normal respiratory effort and able to speak in complete sentences Auscultation: clear to auscultation bilaterally, no crackles, no rales, no rhonchi and no wheezes Cardio: Rate: regular rate Rhythm: regular rhythm Heart sounds: S1 normal heart sound present and S2 normal heart sound present GI: Inspection: normal to inspection Skin: General skin exam: normal color and no rashes or lesions noted Neuro: General: patient oriented x3 and moves all extremities Cranial nerves: Yes Equal, round and reactive pupils present Speech: normal speech Gait exam (Neuro): Normal gait present Extrem: General: normal to inspection, full ROM and no edema Ankle/foot/toe images: 1. 0.5 cm splinter just under skin Psych: Appearance: grossly normal and well kempt Mental Status: mental status grossly normal Speech and movement: Normal speech and movement present Affect: normal affect Attitude: cooperative Thought process: Normal thought process present Course Course Emergency Course: Discharge instructions reviewed with patient, as well as provided in writing per nursing staff. The instructions also include specific and strict return/GO TO THE ER as well as f/u information. All questions have been answered, and the patient deny any further questions with discharge and discharge plan. Portions of this record may have been created with voice recognition software Level of Care: Express Care Visit Vital Signs Vital signs: Reviewed MDM - URI/Sore Throat MDM Narrative Medical decision making narrative: Splinter removed with tweezers. Covered with antibiotic ointment and Band-Aid. Pt well hydrated appearing, in no respiratory distress, hemodynamically stable. Recommend supportive care. The patient is stable at time of discharge the clinical impression was discussed and the patient was given the opportunity to ask questions, which were addressed as completely as possible given the information available at present. Anticipatory guidance and return to care precautions were discussed and the importance of primary care follow-up was stressed and encouraged. The patient voiced understanding of the plan, indications to return, and the need for follow-up. Exam findings show no acute concerns or changes Patient is appropriate for outpatient treatment and follow-up. Differential diagnosis considered: Subramanian virus, strep pharyngitis, allergic rhinitis, upper respiratory tract infection, sinusitis, rhinosinusitis, nasopharyngitis. viral pharyngitis, otitis media, otitis externa, otitis effusion, foreign body, cerumen impaction, viral syndrome, and influenza.? Medical Records Attestation: I reviewed the patient's medical records. Discharge Plan Discharge Clinical Impression: Acute upper respiratory infection, Splinter of toe Patient Disposition: Home Condition: Stable Instructions: Upper Respiratory Infection (ED) Additional Instructions: Your symptoms are likely due to a viral illness, which is not treated with antibiotics. Viral symptoms can be present for up to a few weeks. -For pain/fever, you may take: Tylenol 650-1000mg by mouth every 4-6 hours. Do not exceed 4000mg in 24 hours. Advil (Ibuprofen) 600 mg by mouth every 6 hours. Do not exceed 2400mg in 24 hours. 8 AM: Tylenol 11 AM: Ibuprofen 2 PM: Tylenol 5 PM: Ibuprofen 8 PM: Tylenol 11 PM: Ibuprofen 2 AM: Tylenol 5 AM: Ibuprofen -Antihistamine medication such as Benadryl/Zyrtec at night and Claritin/Kay during the day can help improve symptoms. -Use Flonase twice a day for 5 days then daily to help reduce the inflammation and dry up your sinuses. -You can also use Sudafed behind the pharmacy counter(12 or 24 hour). Be sure to drink plenty of water with these medications at least 8 ounces with every dose and it is important to drink 8 to 10 glasses of water per day. Water is a natural decongestant -Eat and drink things that are easy to swallow, like tea or soup, or popsicles. -Oral rinses such as: Salt water gargles and/or may use topical anesthetic (eg. Chloraseptic spray) or lozenges to relieve dryness or throat pain). -Frequent hand washing or hand cotton seed culler is one of the best ways to prevent spread of infection. -Using a vaporizer or humidifier at night will also help thin secretions and help with coughing up phlegm. Call your Primary Care Doctor and make a follow-up appointment in 3 days. If your cough worsens, you develop a fever greater than 103, you develop shaking chills, a fast heartbeat, trouble breathing and/or feel you are are breathing much faster than usual, call your Primary Care Doctor or go to the ER. Shaista blood pressure was elevated above 120/80 today at Urgent Care. This puts you above the threshold for follow up visit with a primary care provider. High blood pressure does not usually cause any symptoms, however it may lead to kidney failure, stroke, heart disease just to name a few if untreated . Many people are anxious when seeing a provider or nurse. As a result, you are not diagnosed with hypertension at this time unless your blood pressure is persistently high at two office visits at least one week apart. Some things that can help lower blood pressure are lifestyle modifications, such as light exercise, decreased salt in diet, and weight loss. It is important to follow up with a PCP about this within 1 week. Patient Language: Indonesian Prescriptions: New benzonatate 100 mg capsule 100 mg PO BID PRN (Reason: cough) Qty: 14 0RF fluticasone propionate [Flonase Allergy Relief] 50 mcg/actuation spray,suspension 1 spray intranasal DAILY Qty: 16 0RF Rx Instructions: administer into each nostril No Action carvedilol 3.125 mg tablet 3.125 mg PO DAILY levothyroxine [Synthroid] 100 mcg tablet 100 mcg PO DAILY telmisartan 40 mg tablet 40 mg PO DAILY escitalopram oxalate 20 mg tablet 20 mg PO DAILY Follow-up/Referrals: Stew Kauffman MD [Physician, Family Practice] - 3 Days Time of Disposition: 13:46
--- OUTSIDE RECORDS SUMMARY | 2025-06-03 13:28 | XMS_ITS | Data Portability ---
Author Organization [place] [facility],, Jenny tracyosito Address [address] [place] [address] Care Team Providers Care Patient Educator Name Role Phone MIRANDA KOROMA Primary Care Provider Assessment No assessment recorded. Plan of Treatment Reminders Order Date Submit Date Provider Last Modified By Organization Details Last Modified Time Details Appointments None recorded. Lab streptococc us pneumoniae igg Ab, 23 serotypes, serum [address] [facility], [address] [place] [address], [address], 09:56:15 igm, quantitativ e, serum [address] [facility] Out Patient [facility], [address] [place] [address], [place], [address], 09:56:16 igg, quantitativ e, serum [address] [facility] Patient [facility], [address] [place] [address], [place], [address], 09:56:16 Referral None recorded. Procedures None recorded. Surgeries None recorded. Imaging None recorded. Medication Orders None recorded. Patient TargetsNo targets recorded. Patient InstructionsNo instructions recorded. Reason for Referral None Reported. Problems Name Problem SNOMED Code Status Onset Date Resolution Date Notes Provider Name and Address Organization Details Recorded Time Cerebrovasc ular accident 050761319 Completed 201910/23/2019 Alem Ambrose MD [address], [place], [address], [place] [facility], 10:49:06 Essential hypertensio n 10474212 Active [address], [place], [address], [place] [facility], 10:47:55 Hyperlipide vj 09644542 Active [address], [place], [address], [place] [facility], 10:48:02 Migraine 58720552 Active [address], [place], [address], [place] [facility], 10:48:15 Hypothyroid ism 66921914 Active [address], [place], [address], [place] [facility], 10:48:21 Anxiety 15191381 Active [address], [place], [address], [place] [facility], 10:48:28 Immunoglobu maryjo A deficiency 73974822 Active [address], [place], [address], [place] [facility], 10:57:09 Problem Notes None recorded. Procedures Surgical History Date Name Laterality Status Provider Name and Address Organization Details Recorded Time Cervical laminoplsty 2/> seg completed MD [address], [place], [address], [place] [facility], 05/07/2021 10:48:37 Imaging Results None recorded. Procedure Notes None recorded. Medical Equipment None Reported. Allergies Allergen ID Allergen Name Allergen Category Reaction Reaction Severity Criticality Documentation Date Start Date Code Code System Note Provider Name and Address Organization Details Recorded Time 38649 codeine medicatio n Not available Not available Not available 05/07/2021 2670 RxNorm MILDRED esc[facility] - [facility], 10:24:56 Medications Name Sig Start Date Stop Date Status Note LastModified by Organization Details LastModified Time diphenhydram ine 25 mg tablet Take 1 tablet every day by oral route as needed. active Not Available Not Available No t Available escitalopram 20 mg tablet Take 1 tablet every day by oral route. active Not Available Not Available No t Available bupropion HCl XL 300 mg 24 hr tablet, extended release Take 1 tablet every day by oral route. active Not Available Not Available No t Available alprazolam active Not Available Not Av ailable Not Available Flonase Allergy Relief 50 mcg/actuatio n nasal spray,suspen blair Pixley 2 sprays every day by intranasal route as needed. active Not Available Not Available No t Available Vitals Date Recorded Body height Body mass index (BMI) Body weight Heart rate Oxygen saturation Oxygen saturation in Arterial blood by Pulse oximetry Body temperature Systolic And Diastolic Provider Name and Address Organization Details Last Updated DateTime 154.94 cm 34.6 kg/m2 72835.4 g 71 /min 99 % 99 % 97.3 [degF] 130/86 mm[Hg] mali [facility], 10:24:36 Social History Question Answer Notes LastModified by Organizat ion Details LastModified Time Tobacco Smoking Status Never Smoker MILDRED esc[facility] - [facility], 05/07/2021 10:26:01 What Was The Date Of Your Most Recent Tobacco Screening? 05/07/2021 [email or web address] Information not available 05/07/2021 Sex: Unknown Functional Status None recorded. Mental Status None recorded. Family History Relationship Description Onset Age of this Age Resolved Age Notes LastModified by Organization Details LastModified Time Mother Recurrent infectious disease [email or web address] Not available 2020 10:48:50 Brother Recurrent infectious disease [email or web address] Not available 2020 10:48:50 Medical History No medical history recorded. Gynecological HistoryNo gynecological history recorded. Obstetrics History GPAL:G 0 P 0 0 0 0 Immunizations Vaccine Type Date Status Note Provider Nam e and Address Organization Details Recorded Time SARS-COV-2 (COVID-19) vaccine, UNSPECIFIED 09/22/2020 completed Malou taylor, [place] [facility], 05/07/2021 10:28:43 SARS-COV-2 (COVID-19) vaccine, UNSPECIFIED 10/13/2020 completed Malou taylor, [place] [facility], 05/07/2021 10:29:03 SARS-COV-2 (COVID-19) vaccine, UNSPECIFIED 04/30/2021 completed Alem Ambrose MD [address] [place] [address],[address], [place], [address], [place] [facility], 05/07/2021 10:47:35 Past Encounters Encounter ID Performer Location Encounter Start Date Encounter Closed Date Diagnosis/Indication Diagnosis SNOMED-CT Code Diagnosis ICD10 Code Diagnosis IMO Codes Diagnosis Note [id number] Alem Ambrose MD OFFICE [address] [facility] [place] [address] 05/07/2021 10:02:15 05/07/2021 10:56:28 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 At this point she does not have signs of a clinically significan t immunodefi ciency. Check quantitati ve levels of IgG and IgM. Also check functional antibody levels to the 23 most common streptococ peña serotypes. I recommend a Pneumovax and flu shot not sooner than 1 week from now as she just had her COVID booster 1 week ago. I suggested that she alert all health care profession als to the fact that she has IgA deficiency as this could predispose her to a transfusio n reaction should she ever require a blood transfusio n. Seasonal a llergic rhinitis 952800492 J30.2 She will return for allergy skin testing. She knows to continue antihistam lucas one week prior. She should take Flonase, 2 sprays each nostril daily in the spring and fall. I suspect she is allergic to grass and ragweed. Health Concerns Section Related Observation LastModified by Organization Detai ls LastModified Time None Recorded Concern Status LastModified by Organization Details LastModified Time None Recorded Advance Directives Directive None Recorded Payers Insurance Date Sequence Insurance Name Policy Number Policy Rowley Covered Member ID Rowley Member ID Guarantor Name 05/07/2021 1 [employer] (EPO) [id number] Alem Nascimento [id number] Alem Nascimento 05/07/2021 1 [employer] (EPO) [id number] Alem Nascimento [id number] Alem Nascimento Notes Date Note Type Note Provider Name and Address Organization Details Recorded Time 05/07/2021 text/html This patient is referred by Dr. 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 She had had a celiac panel drawn on March 03 and the IgA came back as less than 5. This was confirmed on a repeat test April 06. She says in her teens and 20s she did have a sinus infection roughly twice per year usually in November and in April. She also had pneumonia twice and does not recall the actual time between those cases. 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 Her medical history is significant for an acute CVA in October 2019. At that time she had a chest x-ray which was normal except for a stable nodule. She does report seasonal allergies usually spring and fall. She takes Flonase and occasional Benadryl for this. Her brother and mother have both had recurring sinus infections and recurrent pneumonia. She has never been told of any relatives that had and a primary immunodeficiency or IgA deficiency. She has never had a blood transfusion. Alem Ambrose MD [facility] [address], [place], [address], [facility] [place] [facility], 05/07/2021 10:58:30 OBGyn Episode No OBEpisode recorded.
--- OUTSIDE RECORDS SUMMARY | 2025-06-03 13:28 | XMS_ITS | Clinical Summary ---
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 Gender Identity Not on file Sexual Orientation Not on file Plan of Treatment Health Maintenance Due Date Last Done Comments Hepatitis C Virus (HCV) Screening 1961 TdaP Immunization 1961 Pap Smear 1982 Cervical Cancer Screening (CCS) 1991 HPV/Cotest 1991 Cologuard 2006 Colonoscopy 2006 Colorectal Cancer Screening 2006 Immunochemical Fecal Occult Blood 2006 Pneumococcal Immunization (5 0+ years) (1 of 1 - PCV) 2011 Zoster Immunization (1 of 2) 2011 Influenza Immunization (#1) 2025 SARS-COV-2 Immunization ( - 2023- season) 2025 Respiratory Syncytial Virus (RSV) Immunization (Adult) (1 - 1-dose 75+ series) 2036 Hepatitis B Immunization Aged Out No longer eligible based on patient's age to complete this topic Human Papillomavirus (HPV) Immunization Aged Out No longer eligible b ased on patient's age to complete this topic Meningococcal Immunization (ACWY) Aged Out No longer eligible based on patient's age to complete this topic Rotavirus Immunization Aged Out No lo nger eligible based on patient's age to complete this topic
--- OUTSIDE RECORDS SUMMARY | 2025-06-03 13:28 | XMS_ITS | Patient Health Record ---
Author Organization [facility] Address [address] [facility] [address] [place] [address] Care Team Providers Care Cover Seamer Name Role Phone Yoli Weinberg Unavailable [phone] Allergies Allergen (clinical drug ingredient) Drug/Non Drug Allergy documented on EMR Reaction Allergy Type Onset Date Status codeine Codeine Unknown Drug Allergy Active Results Component Value Reference Range Notes UDT Reviewed date:08/21/2024 02:11:51 PM Interpretation: Performing Lab: Notes/Report: Amphetamine (AMP) NEG 0 - 1000 ng/ml Buprenorphine (BUP) NEG 0 - 10 ng/ml Oxazepam (BZO) NEG 0 - 300 ng/ml Cocaine (MICHAEL) NEG 0 - 300 ng/ml Methamphetamine (mAMP) NEG 0 - 300 ng/ml Methylenedioxymethamphetamine (MDMA) NEG 0 - 500 ng/ml Morphine (MOP) NEG 0 - 25 ng/ml Methadone (MTD) NEG 0 - 300 ng/ml Oxycodone (OXY) NEG 0 - 300 ng/ml THC NEG 0 - 50 ng/ml x NEG 0 - 1000 ng/ml x NEG 0 - 1000 ng/ml x NEG 0 - 300 ng/ml x NEG 0 - 300 ng/ml x NEG 0 - 300 ng/ml Reason For Referral No Information Medications Medication SIG (Take, Route, Frequency, Duration) Notes Start Date End Date Status Escitalopram Oxalate 5 MG Tablet 1 tablet Orally Once a day; Duration: 90 days 08/21/2024 Active buPROPion HCl ER (XL) 150 MG Tablet Extended Release 24 Hour 1 tablet in the morning Orally Once a day; Duration: 90 days 08/21/2024 Active Social History Tobacco Use: Social History Observation Description Date Details (start date - stop date) Never Smoker NA - NA Sex Assigned At : Social History Observation Description Sex Assigned At Female Social History Miscellaneous: Social Info Question Answer Notes Advance Care Planning Are you your own decision-maker Yes Do you have Power of Quarry Boss for Health or [facility]? No Safety issues: Are there any firearms in the house? No Social History Social Info Question Answer Notes Household: Marital Status: Single Number of Adults in household: 1 Number of Children in Household: 0 Level of Education: Professional Schools/Masters /PhD Drug/Alcohol: Social Info Question Answer Notes Drugs Have you used drugs other than those for medical reasons in the past 12 months? No AUDIT-C (Standard) Did you have a drink containing alcohol in the past year? Yes How often did you have six or more drinks on one occasion in the past year? Never (0 point) How many drinks did you have on a typical day when you were drinking in the past year? 1 or 2 drinks (0 point) How often did you have a drink containing alcohol in the past year? 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 Den ies Do you drink alcohol? No Problems Problem Type SNOMED Code ICD Code Onset Dates Problem Status W/U Status Risk Notes Problem Severe recurrent major depression without psychotic features (95262039) Major depressive disorder, recurrent severe without psychotic features (F33.2) Active confirmed Problem Generalized anxiety disorder (15383225) Generalized anxiety disorder (F41.1) Active confirmed Vital Signs Heart Rate 64 /min 08/21/2024 Blood pressure diastolic 87 mm Hg 08/21/2024 Weight-kg 79.11 kg 08/21/2024 Blood pressure systolic 142 mm Hg 08/21/2024 Weight 174.4 lbs 08/21/2024 Encounters Encounter Location Date Provider Diagnosis [facility] [address] [address] [place] [address] 08/21/2024 Yolimary kay Weinberg Major depressive disorder, recurrent severe without psychotic features F33.2 and Generalized anxiety disorder F41.1 [facility] [address] [place] [address] 08/26/2024 Yoli Weinberg Major depressive disorder, recurrent severe without psychotic features F33.2 and Generalized anxiety disorder F41.1 [facility] [address] [facility] [address] [place] [address] 09/16/2024 Yoli Weinberg Major depressive disorder, recurrent severe without psychotic features F33.2 and Generalized anxiety disorder F41.1 Assessments Encounter Date Diagnosis (ICD Code) Assessment Notes Treatment Notes Treatment Clinical Notes Section Notes 08/21/2024 Major depressive disorder, recurrent severe without psychotic features (ICD-10 - F33.2) Common side effects of Wellbutrin include insomnia, increased anxiety, nausea, dizziness, decreased appetite, restlessness, irritability and anger, increased sweating or hot flashes, tremors, joint pain. Wellbutrin is not recommended in individuals with a history of seizures. If side effects persist, please contact the office. 1. MDD PHQ9 21 today -previously stable on SSRI plus Wellbutrin 300mg daily -start wellbutrin 150mg daily --plan to increase dose as needed 2. MIGUEL previously stable on SSRI -start escitalopram 5mg daily --plan to increase as needed/tolerate d 08/21/2024 Generalized anxiety disorder (ICD-10 - F41.1) SSRI/SNRI side effects discussed including but not limited to, gastric upset, nausea, vomiting, diarrhea and/or constipation, weight changes, sexual side effects including loss of libido, increased suicidal thoughts/behavi ors in children and young adults, and serotonin syndrome. 1. MDD PHQ9 21 today -previously stable on SSRI plus Wellbutrin 300mg daily -start wellbutrin 150mg daily --plan to increase dose as needed 2. MIGUEL previously stable on SSRI -start escitalopram 5mg daily --plan to increase as needed/tolerate d 08/26/2024 Major depressive disorder, recurrent severe without psychotic features (ICD-10 - F33.2) 09/16/2024 Major depressive disorder, recurrent severe without psychotic features (ICD-10 - F33.2) 09/16/2024 Generalized anxiety disorder (ICD-10 - F41.1) 08/26/2024 Generalized anxiety disorder (ICD-10 - F41.1) 08/21/2024 Other Previously did well on escitalopram and Wellbutrin (300mg) combination. Discussed need to start at lower doses and build way up to previous doses if needed. Start Wellbutrin 150mg daily for mood Start escitalopram 5mg daily for mood, anxiety. Patient educated on all medications including potential benefits, side effects, risks. Educated on proper dosing schedule and importance of compliance. -Assessment and treatment plan reviewed with patient. -Compliance with treatment plan importance discussed. -Discussed the risks/benefits of this medication -Discussed medication side effects. -Contact office if symptoms worsen. -Discussed that it can take up to 6-8 weeks to see full therapeutic effects of psychotropic medications. -Crisis prevention hotline 988. 1. MDD PHQ9 21 today -previously stable on SSRI plus Wellbutrin 300mg daily -start wellbutrin 150mg daily --plan to increase dose as needed 2. MIGUEL previously stable on SSRI -start escitalopram 5mg daily --plan to increase as needed/tolerate d Plan Of Treatment No Information Insurance Providers Payer Name Payer Address Payer Phone Subscriber Number Group Number Insured Name Patient Relationship to Insured Coverage Start Date Coverage End Date [employer] [address] [place] [address] [id number] MARII LANGLEY Self - patient is the insured Medical (General) History Medical History History ICD Code abdominal aortic aneurysm: No atrial fibrillation: No chronic fatigue syndrome: No essential tremor: No hyperlipidemia: Yes hypertension: Yes Parkinson's disease: No restless leg syndrome: No stroke: Yes subdural hematoma: No type 1 diabetes mellitus: No type 2 diabetes mellitus: No vitamin B12 deficiency: No vitamin D deficiency: Yes Hospitalization History Reason Date(Month/Year) no hx [facility] admissions
--- OUTSIDE RECORDS SUMMARY | 2025-06-03 13:28 | XMS_ITS | Patient Health Record ---
Author Organization [facility] Address [address] [facility] [place] [address] Care Team Providers Care Display Designer Name Role Phone Anette Koroma MD Primary Care Provider Neal Faustin [phone] Allergies Allergen (clinical drug ingredient) Drug/Non Drug Allergy documented on EMR Reaction Allergy Type Onset Date Status Adhesive Tape (uncoded) Stomach Upset Allergy Active codeine Codeine Unknown Drug Allergy Active Reason For Referral No Information Medications Medication SIG (Take, Route, Frequency, Duration) Notes Start Date End Date Status OTC/Vitamins Aleve, Tylenol, Advil, Benagryl, Zantac, Zertec Active Synthroid Active ALPRAZolam Active Escitalopram Oxalate Active Carvedilol Active Telmisartan Active Immunizations Vaccine Route Administration Date Status Comme nts Influenza Vaccination Unknown 04/18/2024 Administered Social History Tobacco Use: Social History Observation Description Date Details (start date - stop date) Never Smoker NA - NA Tobacco Use/Smoking Question Answer Notes Are you a nonsmoker Problems Problem Type SNOMED Code ICD Code Onset Dates Problem Status W/U Status Risk Notes Problem History of polyp of colon (situation) (625098681) Personal history of colonic polyps (Z86.010) Active confirmed Problem Chronic diarrhea (496756494) Chronic diarrhea (K52.9) Active confirmed Alem has had a long history of loose stools. I suspect she has microscopic colitis or another inflammatory process. She has no abdominal pain or any other symptoms related to her diarrhea. Differential diagnosis includes infectious, small intestinal bacterial overgrowth, food intolerances, lactose intolerance, fructose intolerance, irritable bowel syndrome or others. Problem Diverticular disease of colon (921540975) Diverticulosis (K57.90) Active confirmed Problem Dysphagia (37243632) Dysphagia (R13.10) Active confirmed Problem IgA deficiency (26985714) IgA deficiency (D80.2) Active confirmed Alem was tested for celiac disease and this revealed IgA deficiency. She will need further labs which I ordered today, to determine if she has celiac disease. She has no family history, no bloating or abdominal pain, no labs changes. She has no diet restrictions and follows a regular diet. Plan Of Treatment Pending Test Test Name Order Date Colonoscopy 04/06/2021 Insurance Providers Payer Name Payer Address Payer Phone Subscriber Number Group Number Insured Name Patient Relationship to Insured Coverage Start Date Coverage End Date k [facility] [employer] [address] [place] [address] [id number] Alem Nascimento Self - patient is the insured Medical (General) History Medical History History ICD Code Colon Polyps Diverticulosis Internal Hemorrhoids Kidney Problems Hypercholesterolemia Depression/Anxiety Stroke Migraine Headaches Hypertension Hypothyroidism Surgical History Surgery Date(Month/Year) Colonoscopy:Two diminutive p olyps in the sigmoid and ascending colon.Diverticulosis in the sigmoid colon.Hemorrhoids. 03/2021 Upper Endoscopy 2011 Abdominoplasty Spinal Discectomy and Fusion Cervical Disc Eye Surgery Cosmetic Surgery
[2025-06-03 13:34] VITALS: BP 150/87; PULSE 71; RESP 18; TEMP 36.8; O2SAT 98
== END 2025-06-03 13:51 | disposition home or self-care (01) ==
PROVIDERS: Emergency Provider Nurse Practitioner Family
DX: J06.9 Acute upper respiratory infection, unspecified (principal); S90.452A Superficial foreign body, left great toe, initial encounter; W45.8XXA Other foreign body or object entering through skin, initial encounter; I12.9 Hypertensive chronic kidney disease with stage 1 through stage 4 chronic kidney disease, or unspecified chronic kidney disease; N18.9 Chronic kidney disease, unspecified; E03.9 Hypothyroidism, unspecified; E78.5 Hyperlipidemia, unspecified; I69.951 Hemiplegia and hemiparesis following unspecified cerebrovascular disease affecting right dominant side
CPT/HCPCS: 99213; G0463